=== PATIENT | female | born 1935 | race American Indian/Alaskan Native ===

== ENCOUNTER 2017-05-07 06:52 | Day surgery (SDC) | payer MEDICARE ==
[2017-05-05 09:42] VITALS: BMI 29.6
[2017-05-07] MEDS ORDERED: Propofol 10 mg/ml Inj (20 ML) ONE (09:48)
[2017-05-07] MEDS ORDERED: Lactated Ringer's 1,000 ML IV ONE (09:50)
[2017-05-07 10:35] VITALS: TEMP 97.3; O2SAT 100
[2017-05-07 12:07] VITALS: BP 151/62; PULSE 100; RESP 12
== END 2017-05-07 11:40 | disposition home or self-care (01) ==
LOC: C.ENDO 06:52
PROVIDERS: ATTEND Internal Medicine Gastroenterology
DX: Z12.11 Encounter for screening for malignant neoplasm of colon (principal); K57.30 Diverticulosis of large intestine without perforation or abscess without bleeding; K64.1 Second degree hemorrhoids; K63.5 Polyp of colon
CPT/HCPCS: 45380; 82948; 88305; J2704; J7120